=== PATIENT | male | born 1930 | race Caucasian/White ===

== ENCOUNTER → 2018-11-04 | Outpatient (CLI) | payer MEDICARE, BC ==
--- NOTE | 2018-11-04 13:51 | CT ---
EXAMINATION TYPE: CT angio chest DATE OF EXAM: 11/04/2018 COMPARISON: None HISTORY: 88-year-old male Thoracic aortic aneurysm TECHNIQUE: Contiguous axial scanning of the chest performed without and with IV Contrast, patient inj ected with 80 mL of Isovue 370. Coronal/sagittal MIP reconstructions performed. 3-D reconstructions g enerated on a dedicated independent workstation. CT DLP: 863.3 mGycm Automated exposure control for dose reduction was used. FINDINGS: Median sternotomy wires with postoperative changes. Heart mildly enlarged without pericardial effusio n. Aortic root borderline ectatic at 3.5 cm. Ascending aorta mildly aneurysmal at 4.0 cm. Mild to moderate atherosclerotic change in the aortic arch. Variant direct takeoff of the left vertebral artery directly from the aortic arch. Ectatic upper descending thoracic aorta 3.2 cm. Scattered moderate atherosclerotic plaque and mild calcifications throughout the descending thoracic aorta. Ectatic mid descending thoracic aorta 3.0 cm and at the thoracoabdominal junction measuring 2.5 cm. Prominent irregular ulcerated plaque is present in the lower descending thoracic aorta. Moderate atherosclerotic calcification and narrowing at the origin of the SMA. Nonenlarged and mildly enlarged mediastinal lymph nodes measure up to 1.3 cm right tracheobronchial a ngle and 1.0 cm right paratracheal region. Large caliber to the main right and the pulmonary arteries 3.0 and 2.8 minutes, respectively, suggest ing underlying pulmonary hypertension. Some mild hazy groundglass in the mid and lower lungs. Some new groundglass has a somewhat mosaic att enuation appearance. No consolidation or pleural effusion. Low-density nodularity of the bilateral adrenal glands, left greater than right with nodules measurin g up to 3.1 cm. Noncontrast density is variable but as high as 1.4 Hounsfield units suggesting benign adrenal adenomas. Small layering gallstones are noted along with a small hiatal hernia. Bones: [facility] within the thoracic spine. IMPRESSION: 1. 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 THE REMAINDER OF THE DESCENDING THORACIC AORTA IS ECTATI C MEASURING UP TO 3.2 CM. 2. [id number] AT THIS CHRONIC CHANGES. THERE IS MODERATE IRREGULAR, ULCERATED PLAQUE LOCATED IN THE LOWER DESCENDING THORACIC AORTA. 3. FINDINGS SUGGEST UNDERLYING PULMONARY ARTERIAL HYPERTENSION. 4. NONENLARGED AND MILDLY ENLARGED MEDIASTINAL LYMPH NODES MEASURING UP TO 1.3 CM. CONSIDER 6 MONTH F OLLOW-UP CT TO ENSURE STABILITY/RESOLUTION. 5. SOME SCATTERED HAZY GROUNDGLASS DENSITIES COULD REPRESENT AREAS OF GENERALIZED ATELECTASIS. MOSAIC ATTENUATION FROM AIR TRAPPING AND SMALL AIRWAYS DISEASE VERSUS INTERSTITIAL PNEUMONITIS SUCH FROM NSIP ARE ALTERNATIVE CONSIDERATIONS. 6. 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
== END | disposition home or self-care (01) ==
LOC: RADCTMAIN 08:50
PROVIDERS: ATTEND Internal Medicine Interventional Cardiology
DX: I71.2 Thoracic aortic aneurysm, without rupture (principal); I70.0 Atherosclerosis of aorta; R93.89 Abnormal findings on diagnostic imaging of other specified body structures; R59.0 Localized enlarged lymph nodes; R91.8 Other nonspecific abnormal finding of lung field; D35.02 Benign neoplasm of left adrenal gland; D35.01 Benign neoplasm of right adrenal gland; K80.20 Calculus of gallbladder without cholecystitis without obstruction; K44.9 Diaphragmatic hernia without obstruction or gangrene
CPT/HCPCS: 82565; 84520; 71275; 36415; Q9967